=== PATIENT | male | born 1980 | race Caucasian/White ===

== ENCOUNTER 2021-09-05 07:44 | Emergency (ER) | payer OTHER ==
[2021-09-05 08:37] LABS: BASOPHIL 0.8 % (0-2); EOSINOPHIL 2.8 % (0-5); HCT 49.6 % (42.0-52.0); HGB 17.2 g/dl (13.2-18.0); LYMPHOCYTE 32.6 % (15-48); MCH 30.7 pg (25.0-31.0); MCHC 34.7 g/dL (32.0-36.0); MCV 88.4 fL (78.0-100.0); MONOCYTE 7.3 % (0-12); MPV 9.6 fL (6.0-9.5); NEUTROPHIL 56.3 % (41-80); NRBC 0; PLT 328 K/uL (150-400); RBC 5.61 M/uL (4.70-6.00); RDW 12.5 % (11.5-14.0); WBC 11.3 K/uL (4.0-10.5)
[2021-09-05 08:41] LABS: INR 1.11 (0.9-1.2)
[2021-09-05 08:42] LABS: PTT 33.5 SECONDS (24.9-34.6)
[2021-09-05 08:43] LABS: D-DIMER 0.27 ug/mLFEU (0.00-0.41)
[2021-09-05 08:51] LABS: ALBUMIN 3.9 g/dL (3.4-5.0); BILIRUBIN - TOTAL 1.3 mg/dL (0.2-1.0); BUN/CREAT RATIO (CALC) 21.3 RATIO; CREATININE 0.94 mg/dL (0.67-1.17); GLOBULIN (CALCULATION) 3.6 g/dL; MAGNESIUM 2.1 mg/dL (1.8-2.4); POTASSIUM 3.6 mmol/L (3.5-5.1); TOTAL PROTEIN 7.5 g/dL (6.4-8.2)
[2021-09-05 10:36] LABS: BILIRUBIN NEGATIVE (NEGATIVE); BLOOD NEGATIVE Ery/uL (NEGATIVE); CLARITY CLEAR (CLEAR); COLOR YELLOW (YELLOW); GLUCOSE (U) NORMAL (NORMAL); LEUKOCYTES NEGATIVE Leu/uL (NEGATIVE); NITRITE NEGATIVE (NEGATIVE); PROTEIN NEGATIVE (NEGATIVE); SPECIFIC GRAVITY >=1.030 (1.001-1.030); UROBILINOGEN 0.2 mg/dL (0.2-1.0); pH 5.5 (5.0-9.0)
== END 2021-09-05 12:32 | disposition home or self-care (01) ==
LOC: FER 07:44
PROVIDERS: Emergency Medicine
DX: I45.81 Long QT syndrome (principal); M48.061 Spinal stenosis, lumbar region without neurogenic claudication; Z28.310 Unvaccinated for COVID-19
CPT/HCPCS: 36415; 70450; 72131; 80053; 81003; 83735; 84484; 85025; 85379; 85610; 85730; 93005; J7030